=== PATIENT | male | born 2000 | race Caucasian/White ===

== ENCOUNTER 2021-12-21 03:57 | Emergency (ER) | payer BC ==
[~2021-12-21] VITALS: Ht 182.9 cm; Wt 84.5 kg
[2021-12-21 04:02] VITALS: TEMP 98
[2021-12-21 04:19] LABS: BASO # 0.1 K/mm3 (0.0-0.2); BASO % 0.6 % (0.0-2.0); EOS # 0.5 K/mm3 (0.0-0.7); GRAN # 2.9 K/mm3 (1.4-6.5); GRAN % 31.7 % (42.2-75.2); HEMATOCRIT 44.1 % (42.0-52.0); LYMPH # 5.2 K/mm3 (1.2-3.4); LYMPH % 55.7 % (20.0-51.0); MEAN CELL VOLUME 87 fl (80.0-100.0); MEAN CORPUSCULAR HEMOGLOBIN 30 pg (27-31); MEAN CORPUSCULAR HGB CONC 34 g/dl (33.0-37.0); MEAN PLATELET VOLUME 9.4 fl (7.4-10.4); MONO # 0.6 K/mm3 (0.1-0.6); MONO % 6.9 % (1.7-9.3); PLATELET COUNT 247 K/mm3 (130-400); RED BLOOD COUNT 5.05 M/mm3 (4.20-5.60); REDCELL DISTRIBUTION WIDTH-CV 12.3 % (11.5-14.5)
[2021-12-21 04:37] LABS: ALBUMIN 4.7 gm/dL (3.5-5.0); BILIRUBIN,TOTAL 0.4 mg/dL (0.2-1.2); CALCIUM 9.8 mg/dL (8.4-10.2); CREATININE, serum 1.13 mg/dL (0.72-1.25); POTASSIUM 3.2 mmol/L (3.5-4.5); TOTAL PROTEIN 7.5 gm/dL (6.2-8.1)
[2021-12-21 05:51] LABS: MUCOUS Present (NOT PRESENT); SQUAMOUS EPITHELIAL None Seen /hpf (0-10); URINE BACTERIA None Seen /hpf (NONE SEEN); URINE CALCIUM OXALATE CRYSTAL Present (NOT PRESENT); URINE RBC >50 /hpf (0-2)
[2021-12-21 05:55] LABS: COLLECTION METHOD CLEAN CATCH; URINE APPEARANCE Clear (CLEAR/HAZY); URINE BLOOD 3+ (NEGATIVE); URINE COLOR Yellow (YELLOW); URINE GLUCOSE Negative (NEGATIVE); URINE KETONE TRACE (NEGATIVE); URINE NITRATE Negative (NEGATIVE); URINE PROTEIN(semi-quant) Negative (NEGATIVE); URINE UROBILINOGEN 0.2 E.U/dL (0.2-1.0)
[2021-12-21] MEDS ORDERED: ZOFRAN ODT4 MG PO (06:20)
[2021-12-21] MEDS ORDERED: NORCO 325 MG-51 TAB PO (06:20)
[2021-12-21] MEDS ORDERED: FLOMAX 0.40.4 MG/CAP PO (06:20)
[2021-12-21 06:44] VITALS: BP 130/86; PULSE 78
== END 2021-12-21 06:50 | disposition home or self-care (01) ==
LOC: COL.ER 03:57
PROVIDERS: Emergency Medicine
DX: N13.2 Hydronephrosis with renal and ureteral calculous obstruction (principal)
CPT/HCPCS: J1885; J2270; J2405; J7120; Q9967